=== PATIENT | male | born 1945 | race Caucasian/White ===

== ENCOUNTER 2017-12-15 18:28 | Emergency (ER) | payer OTHER, MEDICARE, SELFPAY ==
[2017-12-15 18:29] VITALS: BP 119/60; PULSE 116; RESP 16; TEMP 37.9; O2SAT 95; BMI 25.2
--- NOTE | 2017-12-15 18:43 | RAD_ITS ---
STUDY: X-RAY CHEST REASON FOR EXAM: Male, 72 years old. Cough, fever TECHNIQUE: Frontal and lateral views of the chest. COMPARISON: None. FINDINGS: The lungs are clear and expanded. There is no demonstrated pleural abnormality. Normal size heart. Normal mediastinum and taqueria. Normal visualized pulmonary arteries. Normal visualized aortic arch and descending thoracic aorta. Normal visualized thoracic spine. Normal visualized ribs, clavicles, and shoulders. There is no demonstrated abnormality of the visualized soft tissue structures of the upper abdomen. RAD/Chest PA and Lateral IMPRESSION: No acute cardiopulmonary disease. Electronically Signed: Chris Min DO at 19:17 EST , Service support ,
[2017-12-15] MEDS: 0.9% Normal Saline 1,000 ML 999 ML IV (18:55)
[2017-12-15 19:42] LABS: AST(SGOT) 15 U/L (15-37); Absolute Lymphocyte Count 0.57 X10^3/ul (0.83-4.51); Absolute Neutrophil Count 6.6 X10^3/uL (2.0-7.7); Alanine Aminotransfer ALT/SGPT 22 U/L (16-61); Albumin, Serum 3.3 g/dL (3.2-5.0); Alkaline Phosphatase 167 U/L (45-117); Anion Gap 8 (5-15); BUN 17 mg/dL (7-18); BUN/Creat Ratio 20.1 RATIO (10-20); Basophil# 0.01 X10^3/uL; Basophil% 0.1 % (0-1); Calcium,Total 7.8 mg/dL (8.5-10.1); Chloride 102 mmol/L (98-107); Creatinine, Serum 0.85 mg/dL (0.70-1.30); EST Glomerular Filtration Rate 95 mL/min (>60); Eosinophil# 0.21 X10^3/uL; Eosinophils% 2.5 % (0-5); Est Glom Filt Rate - Afr Amer 115 mL/min (>60); Estimated Creatinine Clearance 92.68 ml/min; Globulin 3.2 g/dL (2.2-4.2); Glucose 116 mg/dL (74-106); Hematocrit 31.4 % (40-54); Hemoglobin 10.7 g/dl (13.0-16.5); Lactic Acid 1.4 mmol/L (0.4-2.0); Lymphocyte # 0.57 X10^3/ul (4.0); Lymphocyte % 6.9 % (19-41); Magnesium 2.3 mg/dL (1.6-2.6); Mean Corp Hgb Conc 34.1 g/gl (32-36); Mean Corpuscular Hgb 35.5 pg (27.0-32.0); Mean Corpuscular Volume 104.3 fL (80-94); Monocyte% 10.9 % (0-10); Neutrophil # 6.56 X10^3/uL (2.7-7.7); Neutrophil % 79.5 % (47-70); Platelet Count 232 K/mm3 (150-450); Potassium 3.9 mmol/L (3.5-5.1); Protein, Total 6.5 g/dL (6.4-8.2); RBC Distribution Width CV 17.2 % (11.6-14.6); RBC Distribution Width SD 64.2 fl (35.1-43.9); Red Blood Count 3.01 M/mm3 (4.6-6.2); Sodium Level 136 mmol/L (136-145); White Blood Count 8.3 K/mm3 (4.4-11.0)
[2017-12-15 19:43] LABS: Differential Indicated SCAN CRITERIA MET; POSITIVE COUNT NO; POSITIVE DIFFERENTIAL YES; POSITIVE MORPHOLOGY NO
[2017-12-15 19:47] LABS: Bacteria 0 SEEN /hpf (None Seen); Mucous, Urine 0 SEEN /hpf (<or=2+); Red Blood Cells-Urine 0 SEEN /hpf (0-5); Squamous Epithelial Cells - UA 0 SEEN /hpf (0-5)
[2017-12-15 19:50] LABS: International Normalized Ratio 1.1; Prothrombin Time (Protime)PT. 13.8 SECONDS (11.7-14.9)
[2017-12-15 19:51] LABS: Color, Urine Yellow (Yellow); Glucose, Dipstick Normal (Normal); Ketone-Dipstick Negative (Negative); Leukocyte Esterase-Dipstick 25 /ul (Negative); Nitrite-Dipstick Negative (Negative); Occult Blood-Urine Negative /ul (Negative); Protein-Dipstick 15 mg/dl (Negative); Specific Gravity, Urine 1.015 (1.002-1.030); Urine Bilirubin Dipstick Negative (Negative); Urine Clarity Clear (Clear); Urine Urobilinogen 4 mg/dl (Normal)
[2017-12-15 19:57] VITALS: BP 119/60; PULSE 106; RESP 20; TEMP 37.9; O2SAT 95
[2017-12-15 19:59] LABS: White Blood Cells 0-5 SEEN /hpf (0-5)
[2017-12-15] MEDS: Acetaminophen 500 MG Tablet 1000 MG PO (20:03)
--- NOTE | 2017-12-15 20:05 | ED.VISSUMM ---
- ER Visit Summary Date of Service: 12/15/17 Chief Complaint: Fever History of Present Illness: The patient is a [address] Neal and Lupe Rayo. He has a history of CLL and his last dose of chemo was approximately 14 days ago. Is that he developed a fever yesterday to 100.9?. He denies any sore throat, cough, abdominal pain, vomiting, diarrhea, dysuria, frequency, rash, or headache. Physical Examination: Vitals: Stable. Afebrile. General: Well-nourished and well-developed. Head: Normocephalic atraumatic. Neck: Supple, no lymphadenopathy. No JVD. Nontender. Cardiovascular: Tachycardic regular rhythm. No murmurs. Respiratory: No respiratory distress. Clear to auscultation bilaterally. Abdominal: Soft, nontender, nondistended, normal bowel sounds. No guarding, rebound, or peritoneal signs. Back: Nontender. Extremities: Nontender, no edema. Skin: Normal color, no rash. Neurologic: Alert and oriented ?3. Cranial nerves II through XII are intact. Normal strength and sensation. Psych: Normal affect. Test Results: CBC is remarkable for a white count of 8.3 with 80 segmented neutrophils giving an absolute neutrophil count of 6640. H&H of 10.7 and 31.4. Leukocytes of 7 and monocytes of 11. Chem-7 is more for glucose of 116, calcium is 7.8, phosphorus of 2.0. LFTs are marked for total bili 1.3 and alk phos of 167. Coags are normal. Urine is negative. Influenza is negative. Chest x-ray shows no acute disease. Lactic acid is 1.4. Emergency Department Course and Treatment: Patient was treated the dose of Tylenol and a liter of normal saline. He is resting comfortably. He feels well and would like to go home. Treatment Plan: Patient was discussed with Dr. Mancini who asked that he not be placed on antibiotics. He is instructed to follow-up with Dr. Neal tomorrow for a repeat examination. Did discuss to him that they would be following up on his cultures in that ultimately he may end up requiring antibiotics if these are positive. Return to the emergency department for any worsening symptoms. Disposition: To home in improved and stable condition. Impression: 1. Fever. 2. CLL on chemotherapy. This note was generated with [employer] software. It may contain incorrect words, spelling, and punctuation that were not noted in review of the chart prior to signing ED Disposition - Plan for ED Patient: Chief Complaint: Fever Instructions: ED Fever Unconf Cause Referrals: Joseph Neal MD [STAFF PHYSICIAN] - 1 Day
[2017-12-15 20:16] VITALS: BP 127/71; PULSE 89; RESP 16; O2SAT 95
[2017-12-15 20:19] LABS: Differential Comment SCANNED
== END 2017-12-15 20:25 | disposition home or self-care (01) ==
LOC: ED 19:21
PROVIDERS: Emergency Provider Emergency Medicine; PCP Nurse Practitioner Primary Care
DX: R50.9 Fever, unspecified (principal); C91.10 Chronic lymphocytic leukemia of B-cell type not having achieved remission; E78.00 Pure hypercholesterolemia, unspecified; Z87.891 Personal history of nicotine dependence; Z79.899 Other long term (current) drug therapy
CPT/HCPCS: 71046; 80053; 81001; 83605; 83735; 84100; 85025; 85610; 85730; 87040; 87086; 87088; 87804; 96360; 99285; J7030

== ENCOUNTER 2018-04-24 13:15 | Day surgery (SDC) | payer OTHER, MEDICARE, SELFPAY ==
[2018-04-21 15:05] VITALS: BP 137/79; PULSE 70; RESP 16; TEMP 36.9; O2SAT 96; BMI 25.1
[2018-04-21 17:15] LABS: Hematocrit 35.5 % (40-54); Hemoglobin 12.2 g/dl (13.0-16.5); Mean Corp Hgb Conc 34.4 g/gl (32-36); Mean Corpuscular Hgb 34.9 pg (27.0-32.0); Mean Corpuscular Volume 101.4 fL (80-94); Mean Platelet Vol. 9.5 fl (6.2-12.0); Platelet Count 165 K/mm3 (150-450); RBC Distribution Width SD 51.3 fl (35.1-43.9); White Blood Count 5.4 K/mm3 (4.4-11.0)
[2018-04-21 17:27] LABS: Scan Indicated on CBC? Y/N NO
[2018-04-21 17:50] LABS: Thyroid Stim Hormone (TSH) 0.63 uIU/mL (0.358-3.74)
[2018-04-24 13:35] VITALS: BP 138/80; PULSE 62; RESP 16; TEMP 36.4; O2SAT 99; BMI 25.1
--- NOTE | 2018-04-24 15:20 | BLB_PTH ---
PATIENT: TORIE BUTTS LOC: [facility] [place][id number] AGE/SX: 72/M ROOM: RE04/24/[address]: Dr. 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 See cancer summary below. BLADDER CANCER (TUR) SUMMARY: Procedure - TURBT Histologic type ? adenocarcinoma and flat urothelial (transitional cell) carcinoma in situ. Associated epithelial lesions ? none identified Histologic grade ? adenocarcinoma ? moderately differentiated Tumor configuration ? flat and invasive Adequacy of material for determining muscularis propria invasion - muscularis propria (detrusor muscle) is not identified. Lymph-Vascular invasion - not identified Microscopic extent of tumor ? tumor invades subepithelial connective tissue (lamina propria). Additional pathologic findings - none The above summary is in compliance with [employer] [place] [employer] (CAP) Cancer Protocols Checklist and [place] Joint Committee on Cancer (AJCC), Staging Manual, 8th Ed. BEN:brien 04/28/18 MICROSCOPIC DESCRIPTION Slides are reviewed. GROSS DESCRIPTION Received in fixative is one container labeled with the patient's name and designated bladder biopsy. The specimen consists of multiple irregular fragments of light ivey soft tissue that in aggregate measure 1.5 x 0.4 x 0.1 cm. The specimen is totally submitted in one cassette. / BEN:brien 04/27/18 TC:0 CPT: 36367 ADDENDUM ADDENDUM ADDENDUM ADDENDUM ADDENDUM ADDENDUM ADDENDUM ADDENDUM ADDENDUM ADDENDUM ADDENDUM ADDENDUM 05/16/2020 10:24 ADDENDUM 05/16/2020 10:24 ADDENDUM 05/16/2020 10:24 ADDENDUM 05/16/2020 10:24 ADDENDUM 05/16/2020 10:24 This addendum is added to incorporate an outside pathology consultation report. The case was examined at [facility] (#[id number]) and the following diagnosis was rendered. Urinary bladder, tumor, transurethral resection: Invasive carcinoma with glandular differentiation. Separate small fragment of muscularis propria is present for evaluation and is free of tumor. Please see complete above mentioned consultation report in EMR
--- NOTE | 2018-04-24 16:07 | PCM.DC.URO ---
Discharge Diet: Light diet - advance as tolerated Discharge Activity: Return to Normal Activity, May Shower Call your doctor if your incision/area has: Continuous Slow Oozing, Sudden Increased Bleeding, Increased Pain/ Swelling, Increased Redness, Foul Smelling Discharge, Swelling at the incision site Instructions: Treating Bladder Cancer: TUR (Transurethral Resection) Allergies/Adverse Reactions: Allergies No Known Allergies Allergy (Verified 12/15/17 18:31) Medications to take at Discharge Finasteride [Proscar] 5 mg PO QHS 12/15/17 Levothyroxine Sodium [Synthroid] 125 mcg PO DAILY 12/15/17 Omeprazole [Omeprazole] 20 mg PO PRN PRN 12/15/17 Pravastatin Sodium [Pravastatin Sodium] 40 mg PO QHS 12/15/17 Ciprofloxacin [Cipro] 500 mg PO BID #6 tab 04/24/18 Hydrocodone/Acetaminophen [[place] 5-325 Tablet] 1 ea PO Q4H PRN PRN 7 Days #14 tab 04/24/18 The following prescriptions were given: Hydrocodone/Acetaminophen [[place] 5-325 Tablet] 1 ea PO Q4H PRN PRN 7 Days #14 tab PRN Reason: Pain Ciprofloxacin [Cipro] 500 mg PO BID #6 tab Primary Care Physician: Lupe Rayo NP-C [Primary Care Provider] - Please Follow Up With: Fernando Jain MD When: call for an appt in two weeks.
--- NOTE | 2018-04-24 16:10 | DCINST_ITS ---
Discharge Diet: Light diet - advance as tolerated Discharge Activity: Return to Normal Activity, May Shower Call your doctor if your incision/area has: Continuous Slow Oozing, Sudden Increased Bleeding, Increased Pain/ Swelling, Increased Redness, Foul Smelling Discharge, Swelling at the incision site Instructions: Treating Bladder Cancer: TUR (Transurethral Resection) Allergies/Adverse Reactions: Allergies No Known Allergies Allergy (Verified 12/15/17 18:31) Medications to take at Discharge Finasteride [Proscar] 5 mg PO QHS 12/15/17 Levothyroxine Sodium [Synthroid] 125 mcg PO DAILY 12/15/17 Omeprazole [Omeprazole] 20 mg PO PRN PRN 12/15/17 Pravastatin Sodium [Pravastatin Sodium] 40 mg PO QHS 12/15/17 Ciprofloxacin [Cipro] 500 mg PO BID #6 tab 04/24/18 Hydrocodone/Acetaminophen [[place] 5-325 Tablet] 1 ea PO Q4H PRN PRN 7 Days #14 tab 04/24/18 The following prescriptions were given: Hydrocodone/Acetaminophen [[place] 5-325 Tablet] 1 ea PO Q4H PRN PRN 7 Days #14 tab PRN Reason: Pain Ciprofloxacin [Cipro] 500 mg PO BID #6 tab Primary Care Physician: Lupe Rayo NP-C [Primary Care Provider] - Please Follow Up With: Fernando Jain MD When: call for an appt in two weeks.
--- NOTE | 2018-04-24 16:14 | OP.PCM_ITS ---
Report of Operation Date of Procedure: 04/24/18 Pre-Operative Diagnosis: bladder mass at the dome, suspicious for urachal process. Post-Operative Diagnosis: Same Surgery/Procedure Performed:: Transurethral resection of a bladder tumor at the dome of the bladder, Description of Surgical Findings:: 72-year-old male taken back to the operating room at the smooth induction of general anesthesia he was placed supine on the table he was then placed in dorsal lithotomy position I went into the bladder with a 21 Swedish rigid cystourethroscope, the urethra and testicle and penis were all prepped and draped in usual sterile fashion, the entire length the urethra is normal, the prostate was normal, inside the bladder identified a large left and right ureteral orifice is normal he had a slightly trabeculated bladder, up in the dome there was A circular looking raised mass by the what appeared to be like a urachal area. I then used a grasper and resected this with biopsy forcep taking multiple resections to the site, after this I used the Bugbee electrode and cauterized this extensively. I had plenty of tissue to set operative pathology really was not diagnostic on view it certainly looked abnormal but it could just be inflammatory process etc. 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 Pathology and this will be critical for now I cauterized the area patient's anesthetic is being reversed plan to see him back in a few weeks in the office to review and proceed from there. Type of Anesthesia:: General Drains: none - Admit VTE Documentation VTE Present on Admission: No VTE Mechan Device Prophylaxis: SCD's VTE Pharm Prophylaxis ordered?: No Reason prophylaxis not ordered:: Treatment Not Indicated
[2018-04-24 16:16] VITALS: BP 138/78; BP 138/80; PULSE 60; RESP 16; TEMP 37; O2SAT 96
[2018-04-24 16:30] VITALS: BP 138/80; BP 144/89; PULSE 68; RESP 16; O2SAT 96
[2018-04-24 16:45] VITALS: BP 138/80; BP 175/84; PULSE 74; RESP 16; O2SAT 100
[2018-04-24 17:01] VITALS: BP 138/80; BP 163/82; PULSE 89; RESP 16; TEMP 36.3; O2SAT 98
[2018-04-24 17:30] VITALS: BP 138/80
--- NOTE | 2018-05-21 | BLA_PTH ---
PATIENT: TORIE BUTTS LOC: [facility] [place] U#:[id number] AGE/SX: 72/M ROOM: RE04/24/[address]: Dr. Fernando Jain MD : 1945 BED: DIS: 04/24/2018 SPEC #: [id number] RECD: 05/21/18 11:14 STATUS: ROSEANNE LARRY #: [id number] BRAD: 05/21/18 00:[address]: Fernando Jain DEPT: SURGICAL PATHOLOGY RECD BY: Padmini Paula ENTERED: 05/21/18 12:05 SP TYPE: BLADDER BX OTHR DR: Lupe Rayo, MOSAIC TECHNICIAN-C Tissues: Urinary bladder, NOS Procedures: Frozen Section (charge) Surgery Specimen Level V HEADER OPERATION: Cysto, transurethral resection of small bladder tumor PRE-OP DIAGNOSIS: Bladder tumor, BPH with obstruction TISSUE SUBMITTED: Bladder biopsy FROZEN SECTION DIAGNOSIS Urachal tumor: Adenocarcinoma, final pending permanent section. SJ:brien 05/21/18 MICROSCOPIC DIAGNOSIS Urachal tumor, biopsy: Invasive adenocarcinoma. Focal urothelial hyperplasia. Mild chronic inflammation. 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 Immunohistochemistry ([id number]) supports the above diagnosis. Reference is made to the patient?s urinary bladder, TUR from 04/28/18 ([id number]) in which invasive adenocarcinoma and flat urothelial carcinoma in situ was identified. Case has been reviewed in consultation with Dr. Bolton who concurs with the above diagnosis. IDC:BEN MICROSCOPIC DESCRIPTION Slides are reviewed. GROSS DESCRIPTION Received fresh for frozen section diagnosis labeled with the patient's name is a specimen designated urachal tumor. The specimen consists of a partial cystectomy specimen measuring 6 x 5 x 3 cm. One surface of this lesion shows mucosal tissue which measures 3 x 2.5 cm. The other surface shows fat tissue representing opposite margin. The specimen is inked as follows: deep margin ? blue, peripheral margin ? black. A full thickness section from mucosa up to and including deep margin is submitted for frozen section diagnosis in two cassettes. Serial sections reveal a ivey, indurated area occupying entire mucosa and also going up to the depth of 1.5 cm. Mat Repairer sections are submitted in ten cassettes as follows: 1 & 2 ? frozen section, 3 ? more sections of deep resection margin, 4-10 ? entire mucosal tissue with underlying tissue. Cassettes 4-10 also contain the peripheral resection margin. The entire mucosal tissue with underlying lesion is submitted in entirety. Sections will be submitted after additional fixation. / SJ:rg 05/22/18 TC:0 CPT: 33387, 96916
--- NOTE | 2018-05-21 | IMM_PTH ---
PATIENT: [place]ORIE BUTTS [place] [facility] [id number] AGE/SX: 72/M ROOM: RE04/24/[address]: Dr. Fernando Jain MD : 1945 BED: DIS: 04/24/2018 SPEC #: [id number] RECD: 05/27/18 13:53 STATUS: ROSEANNE REQ #: [id number] BRAD: 05/21/18 00:[address]: Fernando Jain DEPT: IMMUNOHISTOCHEMISTRY RECD BY: Padmini Paula ENTERED: 05/27/18 13:54 SP TYPE: IMMUNO OTHR DR: Lupe Rayo, HOUSE WIRER HELPER-C Tissues: Urinary bladder, NOS Procedures: CK20 (add) P53 (add) CD44 (add) CK7 (initial) PHYSICIAN & INSTITUTION [place] [id number] SPECIMEN INFORMATION: Tissue Source: Urachal tumor Clinical Info: Bladder tumor, BPH with obstruction Specimen Number: [id number] #9 CPT code: 44696, 42060 x3 METHODOLOGY: Deparaffinized sections of prefer/formalin-fixed tissue or PAP/DQ stained slides are incubated with monoclonal/polyclonal antibodies/oligonucleotide probes. Localization is made via biotin free immunoperoxidase method. Appropriate controls are performed and reacted as expected. Results on target cell population are indicated in the following table: RESULTS: ANTIBODY / CLONE RESULT Block 9 CK7 (OV-TL12/30) negative CK20 (KS20.8) positive P53 (DO-7) positive anti-CD44 (SP37) positive These tests were developed and their performance characteristics determined by [facility]. They may not have been cleared or approved by the U.S. Food and Drug Administration. The FDA has determined that such clearance or approval is not necessary. INTERPRETATION: Bladder, TUR: Invasive adenocarcinoma. AM:brien 05/28/18 Case has been reviewed in consultation with Dr. Bolton who concurs with the above diagnosis. IDC:BEN
== END 2018-04-24 17:31 | disposition home or self-care (01) ==
LOC: SDC 13:16 → AC 13:17 → MS3 13:21
PROVIDERS: Family Provider Nurse Practitioner Primary Care; PCP Nurse Practitioner Primary Care; Visit Provider Urology
PROC: 0TBB8ZZ Excision of Bladder, Via Natural or Artificial Opening Endoscopic (ICD-10-PCS; CPT 52234; principal; 2018-04-24 15:10)
DX: C67.1 Malignant neoplasm of dome of bladder (principal); D09.0 Carcinoma in situ of bladder; N40.1 Benign prostatic hyperplasia with lower urinary tract symptoms; N13.8 Other obstructive and reflux uropathy; R35.1 Nocturia; C91.00 Acute lymphoblastic leukemia not having achieved remission; I10 Essential (primary) hypertension; K21.9 Gastro-esophageal reflux disease without esophagitis; E78.5 Hyperlipidemia, unspecified; E05.90 Thyrotoxicosis, unspecified without thyrotoxic crisis or storm; Z79.899 Other long term (current) drug therapy; Z87.891 Personal history of nicotine dependence
CPT/HCPCS: 52234; 36415; 84443; 85027; 88305; 88307; 88331; 88341; 88342; J7120

== ENCOUNTER 2018-05-21 07:42 | Inpatient (IN) | payer OTHER, MEDICARE, SELFPAY ==
[2018-05-18 11:11] VITALS: BP 140/83; PULSE 69; RESP 17; TEMP 37.1; O2SAT 97; BMI 25.1
--- NOTE | 2018-05-18 11:34 | RAD_ITS ---
STUDY: X-RAY CHEST REASON FOR EXAM: Male, 72 years old. Preoperative evaluation. History of bladder cancer. TECHNIQUE: PA and lateral views of the chest. COMPARISON: Comparison is made with prior study dated December 15, 2017. FINDINGS: Hyperinflation. Scattered calcified granulomas. The lungs are clear. There is no demonstrated pleural abnormality. Normal size heart. Normal mediastinum and taqueria. Normal visualized pulmonary arteries. Normal visualized aortic arch and descending thoracic aorta. Dextroscoliosis. Normal visualized ribs, clavicles, and shoulders. There is no demonstrated abnormality of the visualized soft tissue structures of the upper abdomen. RAD/Chest PA and Lateral IMPRESSION: Hyperinflation. The lungs are clear. Electronically Signed: Jermaine Frye MD at 12:42 EDT Tel [phone], Service support ,
[2018-05-18 12:23] LABS: Hematocrit 37.1 % (40-54); Hemoglobin 12.9 g/dl (13.0-16.5); Mean Corp Hgb Conc 34.8 g/gl (32-36); Mean Corpuscular Hgb 35.1 pg (27.0-32.0); Mean Corpuscular Volume 100.8 fL (80-94); Mean Platelet Vol. 9.4 fl (6.2-12.0); Platelet Count 160 K/mm3 (150-450); RBC Distribution Width CV 13.9 % (11.6-14.6); RBC Distribution Width SD 49.7 fl (35.1-43.9); Red Blood Count 3.68 M/mm3 (4.6-6.2)
[2018-05-18 12:27] LABS: Scan Indicated on CBC? Y/N NO
[2018-05-18 12:37] LABS: ALB/GLOB Ratio 1.1 RATIO (0.9-2.4); AST(SGOT) 29 U/L (15-37); Alanine Aminotransfer ALT/SGPT 28 U/L (16-61); Albumin, Serum 3.8 g/dL (3.2-5.0); Alkaline Phosphatase 94 U/L (45-117); Anion Gap 6 (5-15); BUN 14 mg/dL (7-18); BUN/Creat Ratio 17.4 RATIO (10-20); Calcium,Total 8.6 mg/dL (8.5-10.1); Chloride 104 mmol/L (98-107); EST Glomerular Filtration Rate 101 mL/min (>60); Est Glom Filt Rate - Afr Amer 122 mL/min (>60); Estimated Creatinine Clearance 98.47 ml/min; Globulin 3.4 g/dL (2.2-4.2); Glucose 98 mg/dL (74-106); Potassium 4.3 mmol/L (3.5-5.1); Protein, Total 7.2 g/dL (6.4-8.2); Sodium Level 141 mmol/L (136-145)
[2018-05-21] VITALS (11 sets, daily range): BP systolic 126–160; BP diastolic 63–92; PULSE 75–95; RESP 16–20; TEMP 36.6–37.4; O2SAT 88–98; BMI 25.1; BMI 25.0
[2018-05-21] MEDS: Cefazolin 2 GM in 0.9% Normal Saline 100 ML IV (10:15)
--- NOTE | 2018-05-21 11:57 | PCM.OPRPT ---
Report of Operation Pre-Operative Diagnosis: Bladder cancer, adenocarcinoma of the urachus Post-Operative Diagnosis: Same Surgery/Procedure Performed:: Open partial cystectomy Description of Surgical Findings:: 72-year-old male who is followed for another malignancy on routine CAT scan was found to have a mass in his bladder patient was taken to the operating room a biopsy was done of this and this came back adenocarcinoma the location the mass was right at the top of the bladder right middle urethral location I suspect he has a tumor of the urachus. Because of this I recommended a open partial cystectomy to remove the entire tumor. 72-year-old male taken back to the operating room after smooth induction of general anesthesia he was placed supine on the table, the penis and testicles and lower abdomen were prepped and draped in usual sterile fashion, I made a 10 cm incision in the midline lower midline from the pubic bone up about 10 cm once I opened up the skin and subcutaneous fascia I then identified the midline fascia opened this up midline fascia with electrocautery graft who presented to ends of the fascia pulled is up and identified the midline between the rectus muscles and split the rectus muscles in the midline I then created the space of Retzius above the bladder dissected very carefully not to cause any bleeding on both sides once this was opened up and I placed a retractor inside the abdomen to retract the rectus muscles off the midline we put a Nieves catheter into the bladder and we distended the bladder. I then performed cystoscopy to identify where the tumor was and I could see the biopsy sites and the tumor and the top of the bladder I could not feel and I could feel the nodularity of the tumor the top of the bladder we then circumferentially located R incision in the bladder all the way around this tumor I opened up the bladder used Babcocks to hold the bladder edges and then using feel it could feel the hard nodularity of the tumor and then went laterally about 2 cm on both sides of the tumor until I got the soft tissue muscle where there is no nodularity and dissected all the way around the urethral tumor freed it up from the bladder and doing this I did enter the peritoneum which is immediately recognized no injury to any critical structures and within the peritoneum but I did recognize a entry into the peritoneum and then because this was in the dome of the bladder then I took off the entire urachus from the dome of the bladder and the and some of the tail with it this was handed off as a specimen was sent off to pathology pathology confirmed that this is adenocarcinoma, within the muscle of the bladder and they reported preliminarily the edges appear to be free also grossly edges were free and I looked inside the bladder there was everything was free gross nice and soft edges all the way around. I then closed the bladder defect in 2 layers I closed the first layer with a 2-0 Vicryl in a running fashion. Then closed the second layer on top of this with 2-0 Monocryl imbricating layer on top of this. And then I closed the peritoneal window that was created during excision of the urethral tumor in the dome after the bladder was closed the ureteral the defect and the peritoneum was closed I did a cystoscopy of the bladder is completely intact and nice and dry with no leakage from the incision and closure I then put a catheter in the bladder irrigate out all the clots get a nice and clear we then closed the fascia with #1 PDS coming from one end to the other and tied in the middle then we reapproximated subcu fascia with 3-0 Vicryl and then we closed the skin with 4-0 Monocryl Steri-Strips are placed and bandages were placed patient anesthetic was reversed he was extubated taken back to PACU in stable condition and I will report to the family. Type of Anesthesia:: General Drains: nieves - Admit VTE Documentation VTE Present on Admission: No VTE Mechan Device Prophylaxis: SCD's VTE Pharm Prophylaxis ordered?: No Reason prophylaxis not ordered:: Treatment Not Indicated
--- NOTE | 2018-05-21 12:03 | EKG12_ITS ---
Test Reason : ST ELEVATED Blood Pressure : / mmHG Vent. Rate : 089 BPM Atrial Rate : 089 BPM P-R Int : 216 ms QRS Dur : 110 ms QT Int : 426 ms P-R-T Axes : 063 036 027 degrees QTc Int : 518 ms Sinus rhythm with 1st degree A-V block Nonspecific ST abnormality Prolonged QT Abnormal ECG When compared with ECG of 21-APR-2018 14:29, Non-specific change in ST segment in Anterior leads Confirmed by HERBIE VERA, FELICITA ([id number]), editor map HONORIO MCKEON ([id number]) on 05/25/2018 2:18:43 PM Referred By: Fernando Jain Confirmed By:FELICITA STONER MD
[2018-05-21] MEDS: 0.9% Normal Saline 1,000 ML 75 ML IV (13:59)
[2018-05-21] MEDS: Docusate Sodium 100 MG Capsule 200 MG PO (21:29)
[2018-05-21] MEDS: Ciprofloxacin 500 MG Tablet PO (21:29)
[2018-05-21] MEDS: Finasteride 5 MG Tablet PO (21:29)
[2018-05-21] MEDS: Pravastatin 40 MG Tablet PO (21:29)
[2018-05-21] MEDS: HYDROcodone Bitartrate/Apap 5/325 Tablet PO (21:34)
[2018-05-22 02:16] VITALS: BP 121/66; PULSE 77; RESP 20; TEMP 37.7; O2SAT 94
[2018-05-22] MEDS: 0.9% Normal Saline 1,000 ML 75 ML IV (02:22)
[2018-05-22] MEDS: guaiFENesin 10 ML UDC (200MG/10ML) PO (02:40)
[2018-05-22 04:35] VITALS: TEMP 37.5
[2018-05-22] MEDS: Acetaminophen 325 MG Tablet PO (05:43)
[2018-05-22] MEDS: Levothyroxine 125 MCG Tablet PO (05:43)
--- NOTE | 2018-05-22 05:48 | NURSING ---
COUNTY COURT JUDGE emptied pt's catheter and appeared slightly more red in color (was yellow with some sediment) no clots noted. pt states feels like catheter is flowing appropriately. will monitor and flush if needed per orders.
[2018-05-22 06:25] LABS: Hematocrit 34.2 % (40-54); Hemoglobin 11.8 g/dl (13.0-16.5); Mean Corp Hgb Conc 34.5 g/gl (32-36); Mean Corpuscular Volume 101.5 fL (80-94); Mean Platelet Vol. 9.1 fl (6.2-12.0); Platelet Count 149 K/mm3 (150-450); RBC Distribution Width CV 13.6 % (11.6-14.6); RBC Distribution Width SD 49.9 fl (35.1-43.9); Red Blood Count 3.37 M/mm3 (4.6-6.2); White Blood Count 6.6 K/mm3 (4.4-11.0)
[2018-05-22 06:29] LABS: Scan Indicated on CBC? Y/N NO
[2018-05-22 06:46] LABS: Anion Gap 7 (5-15); BUN 9 mg/dL (7-18); BUN/Creat Ratio 10.8 RATIO (10-20); Calcium,Total 8.1 mg/dL (8.5-10.1); Chloride 105 mmol/L (98-107); Creatinine, Serum 0.84 mg/dL (0.70-1.30); EST Glomerular Filtration Rate 96 mL/min (>60); Est Glom Filt Rate - Afr Amer 116 mL/min (>60); Estimated Creatinine Clearance 93.78 ml/min; Glucose 98 mg/dL (74-106); Potassium 3.7 mmol/L (3.5-5.1); Sodium Level 142 mmol/L (136-145)
[2018-05-22 08:16] VITALS: BP 130/73; PULSE 78; RESP 18; TEMP 36.8; O2SAT 95
--- NOTE | 2018-05-22 08:48 | DCINST_ITS ---
Discharge Diet: Light diet - advance as tolerated Discharge Activity: Return to Normal Activity Call your doctor if your incision/area has: Continuous Slow Oozing, Sudden Increased Bleeding, Increased Pain/ Swelling, Increased Redness, Foul Smelling Discharge, Swelling at the incision site Call your doctor if you observe: Fever of 101 or Higher, Uncontrolled pain Suture Line Care: Avoid Pulling/Pushing, Avoid Pinching/Bending Catheter: Esposito to leg bag, Esposito to large bag Drain: [place] Allergies/Adverse Reactions: Allergies No Known Allergies Allergy (Verified 05/18/18 11:05) Medications to take at Discharge Finasteride [Proscar] 5 mg PO QHS 12/15/17 Levothyroxine Sodium [Synthroid] 125 mcg PO DAILY 12/15/17 Omeprazole [Omeprazole] 20 mg PO PRN PRN 12/15/17 Pravastatin Sodium [Pravastatin Sodium] 40 mg PO QHS 12/15/17 Ciprofloxacin [Cipro] 500 mg PO BID #20 tab 05/22/18 Docusate Sodium [Colace] 100 mg PO BID #20 cap 05/22/18 Hydrocodone/Acetaminophen [[place] 5-325 Tablet] 1 ea PO Q4H PRN PRN 7 Days #14 tab 05/22/18 The following prescriptions were given: Hydrocodone/Acetaminophen [[place] 5-325 Tablet] 1 ea PO Q4H PRN PRN 7 Days #14 tab PRN Reason: Pain Ciprofloxacin [Cipro] 500 mg PO BID #20 tab Docusate Sodium [Colace] 100 mg PO BID #20 cap Primary Care Physician: Lupe Rayo NP-C [Primary Care Provider] - Test Results: Test results from this visit will be discussed in further detail at your follow- up appointment, if applicable. Please Follow Up With: Fernando Jain MD When: 2 weeks, please call to make an appointment.
--- NOTE | 2018-05-22 09:13 | PCM.DC.SUM ---
Discharge Date and Diagnosis Date of Admission: 05/21/18 Date of Discharge: 05/22/18 Hospital Course and Treatment Operations: - - OPEN PARTIAL CYSTECTOMY. Summary of Care Provided: The patient is a 72 year old male s/p open partial cystoctomy discharged home in good condition on pod #1 with nieves to leg bag. Discharge Diet: Light diet - advance as tolerated Discharge Activity: Return to Normal Activity Call your doctor if your incision/area has: Continuous Slow Oozing, Sudden Increased Bleeding, Increased Pain/ Swelling, Increased Redness, Foul Smelling Discharge, Swelling at the incision site Call your doctor if you observe: Fever of 101 or Higher, Uncontrolled pain Suture Line Care: Avoid Pulling/Pushing, Avoid Pinching/Bending Catheter: Nieves to leg bag, Nieves to large bag Drain: [place] Home Medications: Medications to take at Discharge Finasteride [Proscar] 5 mg PO QHS 12/15/17 Levothyroxine Sodium [Synthroid] 125 mcg PO DAILY 12/15/17 Omeprazole [Omeprazole] 20 mg PO PRN PRN 12/15/17 Pravastatin Sodium [Pravastatin Sodium] 40 mg PO QHS 12/15/17 Ciprofloxacin [Cipro] 500 mg PO BID #20 tab 05/22/18 Docusate Sodium [Colace] 100 mg PO BID #20 cap 05/22/18 Hydrocodone/Acetaminophen [[place] 5-325 Tablet] 1 ea PO Q4H PRN PRN 7 Days #14 tab 05/22/18 Following Prescrptions Were Given to Patient: Hydrocodone/Acetaminophen [[place] 5-325 Tablet] 1 ea PO Q4H PRN PRN 7 Days #14 tab PRN Reason: Pain Ciprofloxacin [Cipro] 500 mg PO BID #20 tab Docusate Sodium [Colace] 100 mg PO BID #20 cap Primary Care Physician: Lupe Rayo NP-C [Primary Care Provider] - Please Follow Up With: Fernando Jain MD When: 2 weeks, please call to make an appointment. Medical Necessity - Tobacco Use Smoking Status: Former smoker Tobacco Use: Cigarettes Meaningful Use Info Meaningful Use Diagnoses (Choose all that apply): None applicable
[2018-05-22] MEDS: Ciprofloxacin 500 MG Tablet PO (10:24)
[2018-05-22] MEDS: Docusate Sodium 100 MG Capsule 200 MG PO (10:24)
--- NOTE | 2018-05-22 11:23 | CASEMGMT ---
KINZA HAINES attempted to complete Face to Face. Patient has been discharged to home with .
== END 2018-05-22 11:04 | disposition home or self-care (01) | DRG 655 ==
LOC: ACINP 07:43 → MS3 05-22 06:18
PROVIDERS: Anesthesiology; Admitting Provider Urology; Family Provider Nurse Practitioner Primary Care; PCP Nurse Practitioner Primary Care; Visit Provider Urology
PROC: 0TBB0ZZ Excision of Bladder, Open Approach (ICD-10-PCS; CPT 51596; principal; 2018-05-21 09:45)
DX: C67.7 Malignant neoplasm of urachus (principal); K21.9 Gastro-esophageal reflux disease without esophagitis; E78.5 Hyperlipidemia, unspecified; N40.1 Benign prostatic hyperplasia with lower urinary tract symptoms; R35.1 Nocturia; Z79.899 Other long term (current) drug therapy
CPT/HCPCS: 36415; 71046; 80048; 80053; 84484; 85027; 86850; 86900; 86920; 86922; 93005; J7030; J7120; J2405

== ENCOUNTER → 2020-03-30 16:56 | Outpatient (CLI) | payer OTHER, SELFPAY ==
--- NOTE | 2020-03-30 | FLU_PTH ---
PATIENT: TORIE BUTTS LOC: [facility] U#:[id number] AGE/SX: 80/M ROOM: RE03/30/[address]: Dr. 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 AM:brien 03/31/20 COMMENT Reference is made to the patient's urinary bladder TUR from 2018 ([id number]) in which invasive urothelial carcinoma was identified. CYTOLOGY STUDY Slides are reviewed. CYTOLOGY GROSS Received is 60 ml of clear yellow fluid labeled with the patient's name and and designated per the requisition as urine. Submitted for cytology preparation. / rg 03/31/20 TC:0 CPT: 89144
[2020-03-30 16:56] VITALS: BMI 25.2
[2020-03-30 16:58] LABS: Cytology, Body Fluid / CSF SEE PATHOLOGY REPORT
== END ==
PROVIDERS: PCP Nurse Practitioner Primary Care; Visit Provider Urology
DX: C67.1 Malignant neoplasm of dome of bladder (principal)
CPT/HCPCS: 88108; 88305; 88313

== ENCOUNTER → 2020-04-12 07:09 | Outpatient (CLI) | payer OTHER, SELFPAY ==
[2020-03-30 16:56] VITALS: BMI 25.2
--- NOTE | 2020-04-12 07:16 | CT_ITS ---
STUDY: CT ABDOMEN AND PELVIS WITH CONTRAST REASON FOR EXAM: Male, 74 years old. BLADDER CANCER-REMOVAL AND CHEMO RADIATION DOSAGE (If Supplied By Facility): CTDIvol = ( 17.89 ) mGy, DLP = ( 1899.73 ) mGycm TECHNIQUE: Transaxial images were obtained from the dome of the diaphragm to the symphysis pubis without oral contrast. IV 100mL Isovue-300 was administered. Sagittal and coronal images were reconstructed. Individualized dose optimization techniques were used for this CT. COMPARISON: None. FINDINGS: The visualized lung bases are unremarkable. Coronary artery calcification. Normal liver. Normal gallbladder and extrahepatic biliary system. Normal spleen. Normal pancreas. Normal bilateral adrenal glands. Normal right kidney. Normal left kidney. Normal visualized stomach. Normal small intestine. There are multiple colonic diverticula consistent with diverticulosis. The appendix is visualized and appears normal. There is diffuse atherosclerotic calcification of the abdominal aorta, without a demonstrated aneurysm. Normal inferior vena cava. There is borderline retroperitoneal lymphadenopathy with enlarged nodes no greater than 10mm in the short axis diameter. There is evidence of diffuse bladder wall thickening. There is enlargement of the prostate gland. This measures 5.8 cm by 6.3 cm. This causes indentation at the bladder base. Enlarged right inguinal lymph nodes. Slightly enlarged left inguinal lymph nodes. There are degenerative changes of the visualized lumbar spine. CT/Abdomen/Pelvis WITH Contrast IMPRESSION: Enlargement of the inguinal lymph nodes bilaterally. Diffuse bladder wall thickening with enlargement of the prostate gland and indentation at the bladder base. Electronically Signed: Jermaine Frye, at 10:25 EDT , Service support ,
[2020-04-12 07:26] LABS: CREATININE FINGERSTICK 0.8 mg/dL (0.70-1.30); EGFR FINGERSTICK > 60.0000 mL/min (>60)
== END ==
PROVIDERS: PCP Nurse Practitioner Primary Care; Referring Provider Urology; Visit Provider Urology
DX: C67.1 Malignant neoplasm of dome of bladder (principal)
CPT/HCPCS: 74177; Q9967